=== PATIENT | male | born 1955 | race Caucasian/White ===

== ENCOUNTER → 2021-06-05 | Outpatient (CLI) | payer OTHER ==
[~2021-06-05] MED LIST: DARVOCET-N 1001 EAC1 PO; FLEXERIL PO; MEDROLDOSEPACK PO; NOHOMEMEDICATIONS; PERCOCET 5-3251 EACH PO
== END ==
LOC: RAD 13:20
PROVIDERS: ATTEND Family Medicine
DX: S39.012A Strain of muscle, fascia and tendon of lower back, initial encounter (principal); I70.8 Atherosclerosis of other arteries; M17.0 Bilateral primary osteoarthritis of knee; X58.XXXA Exposure to other specified factors, initial encounter; Y93.89 Activity, other specified; Y92.89 Other specified places as the place of occurrence of the external cause; Y99.8 Other external cause status